=== PATIENT | female | born 1985 | race American Indian/Alaskan Native ===

== ENCOUNTER 2016-12-14 05:41 | Inpatient (IN) | payer MEDICAID ==
[2016-12-14] MEDS ORDERED: LACTATED RINGERS 1,000 ML ONE ×2 (06:07→06:51)
[2016-12-14] MEDS ORDERED: LACTATED RINGERS 1,000 ML IV ONE (06:56)
[2016-12-14] MEDS ORDERED: PHENERGAN PO PRN (06:58)
[2016-12-14] MEDS ORDERED: PHENERGAN PR PRN (06:58)
[2016-12-14] MEDS ORDERED: TORADOL IV PRN (06:58)
[2016-12-14] MEDS ORDERED: ZOFRAN IV PRN (06:58)
[2016-12-14] MEDS ORDERED: NARCAN 0.4 MG/1 ML IV PRN ×2 (06:58→09:30)
--- NOTE | 2016-12-14 06:58 | Anesthesia Consultation ---
Anesthesia Consult and Med Hx Date of service: 12/14/16 - Airway Anesthetic Teeth Evaluation: Good (some missing teeth) ROM Head & Neck: Adequate Mental/Hyoid Distance: Adequate Mallampati Class: Class II Intubation Access Assessment: Probably Good - Pre-Operative Health Status ASA Pre-Surgery Classification: ASA2 Proposed Anesthetic Plan: Spinal - Pulmonary Hx Asthma: No COPD: No Hx Pneumonia: No - Cardiovascular System Hx Hypertension: No - Central Nervous System Hx Seizures: No Hx Psychiatric Problems: No - Endocrine Hx Renal Disease: No Hx End Stage Renal Disease: No Hx Hypothyroidism: No Hx Hyperthyroidism: No - Hematic Hx Anemia: No Hx Sickle Cell Disease: No - Other Systems Hx Alcohol Use: No - Additional Comments Anesthesia Medical History Comments: h/o c-sections x 3
--- NOTE | 2016-12-14 06:58 | Anesthesia Day of Surgery ---
Anesthesia Day of Surgery - Day of Surgery Patient Examined: Yes Patient H&P Reviewed: Yes Patient is NPO: Yes
[2016-12-14] MEDS ORDERED: SODIUM CHLORIDE FLUSH SYRINGE 10 ML IV NR (07:00)
[2016-12-14] MEDS ORDERED: fentaNYL-BUPIV 2 MCG/ML-0.125% 200 MCG/100 ML BAG EPIDURAL SCH (07:00)
[2016-12-14 07:07] LABS: Hematocrit 25.9 % (30.3-42.9); Mean Corpuscular HGB Conc 31 % (30-34); Mean Corpuscular Hemoglobin 20 pg (28-32); Mean Corpuscular Volume 66 fl (79-97); Platelet Count 300 K/mm3 (140-440); Red Blood Count 3.92 M/mm3 (3.65-5.03); Red Cell Distribution Width 19.3 % (13.2-15.2); White Blood Count 6.4 K/mm3 (4.5-11.0)
--- NOTE | 2016-12-14 07:10 | History and Physical Report ---
History of Present Illness Date of examination: 12/14/16 Date of admission: 12/14/16 05:41 Chief complaint: 4th repeat LTCS History of present illness: 31-year-old 003 at 39+ weeks presents for a fourth repeat , she is a [facility] [place] patient. course has been unremarkable per patient. Past History Past Medical History: no pertinent history Past Surgical History: no surgical history PROVIDER RELATIONS COORDINATOR History: denies: chlamydia, gonorrhea, hepatitis B, hepatitis C, herpes, HIV , syphilis, trichomonas Social history: single, full code. denies: smoking, alcohol abuse, prescription drug abuse, IV drug use - Obstetrical History Expected Date of Delivery: 12/19/16 Actual Gestation: 39 Week(s) 2 Day(s) : 4 Para: 3 Medications and Allergies Allergies Allergy/AdvReac Type Severity Reaction Status Date / Time No Known Allergies Allergy Unverified 12/14/16 06:38 Active Meds: Active Medications Lactated Ringer's (Lactated Ringers) 1,000 mls @ 999 mls/hr IV BOLUS ONE Stop: 12/14/16 07:56 Fentanyl/Bupivacaine/Sodium Chlor (Fentanyl-Bupiv 2 Mcg/Ml-0.125%) 200 mcg in 100 mls @ 8 mls/hr EPIDURAL TITR SHANTA PRN Reason: Protocol Ketorolac Tromethamine (Toradol) 30 mg IV Q6H PRN PRN Reason: Pain, Moderate (4-6) Stop: 12/19/16 06:57 Naloxone HCl (Narcan 0.4 Mg/1 Ml) 0.2 mg IV Q2MIN PRN PRN Reason: Res Rate </= 8 or 02 SAT < 92% Stop: 12/16/16 06:59 Ondansetron HCl (Zofran) 4 mg IV Q8H PRN PRN Reason: Nausea And Vomiting Promethazine HCl (Phenergan) 25 mg PO Q6H PRN PRN Reason: Nausea And Vomiting Promethazine HCl (Phenergan) 25 mg NM Q6H PRN PRN Reason: Nausea And Vomiting Sodium Chloride (Sodium Chloride Flush Syringe 10 Ml) 10 ml IV PRN NR Stop: 12/15/16 06:59 Review of Systems Constitutional: no fever, no chills Cardiovascular: no chest pain, no orthopnea, no palpitations, no syncope, no lightheadedness, no shortness of breath, no dyspnea on exertion, no high blood pressure Respiratory: no cough, no shortness of breath, no dyspnea on exertion Gastrointestinal: no abdominal pain, no nausea, no vomiting Genitourinary: no vaginal bleeding, no vaginal discharge, no leakage of fluid - Vital Signs Vital signs: Vital Signs Pulse Pulse Ox 104 H 97 12/14/16 06:39 12/14/16 06:39 Temp Pulse Resp BP Pulse Ox 98.3 F 100 H 18 114/76 99 12/14/16 06:40 12/14/16 07:03 12/14/16 06:40 12/14/16 06:41 12/14/16 07:03 - Physical Exam Cardiovascular: Regular rate, Normal S1, Normal S2 Lungs: Positive: Clear to auscultation, Normal air movement Abdomen: Positive: normal appearance, soft. Negative: distention, tenderness, guarding, rigidity Uterus: Positive: enlarged (EFW ~ 3600) Adnexa: both: normal Extremities: Positive: normal - Obstetrical FHR: category 1 Results Result Diagrams: 12/14/16 06:00 Abnormal lab results 12/14/16 Range/Units 06:00 Hgb 8.0 L (10.1-14.3) gm/dl Hct 25.9 L (30.3-42.9) % MCV 66 L (79-97) fl MCH 20 L (28-32) pg RDW 19.3 H (13.2-15.2) % All other labs normal. Assessment and Plan A: 31-year-old 003 at 39+2 weeks presents for fourth repeat -Cat 1 tracing P: -Patient is aware of increased risk with repeat surgeries -She declined tubal ligation in the office -She has been consented, will proceed to the OR once available - Patient Problems (1) 39 weeks gestation of Current Visit: Yes Status: Acute (2) History of 3 sections Current Visit: Yes Status: Acute
[2016-12-14] MEDS ORDERED: MORPHINE ONE (07:30)
[2016-12-14] MEDS ORDERED: LACTATED RINGERS 1,000 ML IV SCH (08:00)
[2016-12-14] MEDS ORDERED: PEPCID IV NR (08:00)
[2016-12-14] MEDS ORDERED: PITOCin/NS 20 UNIT/1000ML DRIP 20 UNITS/1,000 ML BAG IV SCH ×2 (08:00→09:30)
[2016-12-14] MEDS ORDERED: BICITRA PO NR (08:00)
[2016-12-14] MEDS ORDERED: ANCEF/STERILE WATER 2 GM/20 ML 2 GM/20 ML SYRINGE IV NR (08:00)
[2016-12-14] MEDS ORDERED: XYLOCAINE MPF 2% ONE ×2 (08:17→08:18)
[2016-12-14] MEDS ORDERED: NACL 0.9% 1000 ML 1,000 ML ONE (08:21)
[2016-12-14] MEDS ORDERED: WATER FOR IRRIG STERILE IR ONE (08:23)
[2016-12-14] MEDS ORDERED: NACL 0.9% IR ONE (08:23)
[2016-12-14] MEDS ORDERED: ZOFRAN ONE (08:24)
[2016-12-14] MEDS ORDERED: REGLAN IV NR (08:30)
[2016-12-14] MEDS ORDERED: EMLA TP PRN (08:30)
[2016-12-14] MEDS ORDERED: NEO SYNEPHRINE/NS Syringe(OR USE) IV ONE (08:30)
[2016-12-14] MEDS ORDERED: NACL 0.9% 500 ML 500 ML IV NR (08:30)
--- NOTE | 2016-12-14 08:56 | Operative Report ---
Operative Report Operative Report: DATE: 12/14/2016 PREOPERATIVE DIAGNOSIS: 31-year-old 003 at 39+2 weeks, 3 prior C-sections , Anemia with Hgb of 8 POSTOP DIAGNOSIS: As above NAME OF PROCEDURE: 4th Repeat low transverse section Adhesiolysis SURGEON: ANNA ANDUJAR MD SENIOR MANUFACTURING TEST ENGINEER: [] ANESTHESIA: Combined spinal epidural EBL: 700 mL PATHOLOGY SPECIMEN: None URINE OUTPUT: 30 mL She was transfused with 1 unit packed red blood cells prior to procedure FINDINGS: Female infant in cephalic presentation, time of was 0 8:11 AM, infant weight was 6 lbs. 15 oz. or 3157 g, Apgars 9 and 9, mild adhesions, normal uterus tubes and ovaries bilaterally DESCRIPTION OF PROCEDURE: She was taken to the operating room where she was prepped and draped in a sterile fashion, she was placed in the dorsal supine position. Pfannenstiel incision was performed through her prior incisional scar which was carried through to underlying rectus fascia which was on the midline. The fascial incision was extended laterally with use of Carrizales scissors , the anterior leaf was then grasped with Kochers forceps elevated dissected sharply and bluntly off the underlying rectus in a similar fashion inferior leaf was grasped elevated dissected sharply and bluntly off the underlying rectus. The rectus was in the midline, good visualization of bladder was noted. A bladder blade was placed in the patient's pelvic cavity; bladder flap could not be created. A hysterotomy incision was then performed in the lower segment with clear amniotic fluid noted, hysterotomy incision was extended laterally with the use of fingers manually. Infant in cephalic presentation was delivered in the usual manner; cord was clamped and cut infant was handed over to waiting nursery staff. The placenta was then delivered manually intact, the uterus was exteriorized cleared of all clots and debris. Hysterotomy incision was then closed in a running locked fashion with 0 Vicryl on a CTX; using the same suture was imbricate the initial layer. Interrupted [id number] stitches were used to obtain hemostasis. Uterus was then returned to the patient's pelvic cavity; peritoneal edges were grasped with hemostats and Tiffanie's elevated copiously irrigation was used to clear the gutters of all clots and debris. Tercel hemostatic agent was then applied to the hysterotomy incision as a means to prevent future bleeding, Interceed was then applied into the pelvic cavity as a means to prevent future adhesions. The peritoneal layer was then closed in a running fashion with 3-0 Vicryl and the rectus was reapproximated with a single xjcqfa-no-hveiq stitch. The fascia was closed in a running fashion with 0 Vicryl and tied in the opposite side. The subcutaneous layer was irrigated and then reapproximated with interrupted [id number]-ht-[id number] stitches. The skin was closed in a subcuticular manner with 4- 0 Vicryl. She tolerated the procedure well lap and instrument counts were correct 2 she did receive 2 g of Ancef prior to incision she is transferred to PACU in stable condition thank you.
[2016-12-14] MEDS ORDERED: SODIUM CHLORIDE FLUSH SYRINGE 10 ML IV PRN (09:00)
[2016-12-14] MEDS ORDERED: MOTRIN PO PRN (09:30)
[2016-12-14] MEDS ORDERED: TUCKS PAD TP PRN (09:30)
[2016-12-14] MEDS ORDERED: LANSINOH TP PRN (09:30)
[2016-12-14] MEDS: DILAUDID IV PRN ×2 (09:33→09:46)
--- NOTE | 2016-12-14 09:45 | Post Anesthesia Evaluation ---
- Post Anesthesia Evaluation Patient Participated: Yes Airway Patent: Yes Stable Respiratory Function: Yes Nausea/Vomiting: No Temp > 96.8F: Yes Pain Manageable: Yes Adequeate Hydration: Yes Anesthesia Complications: No
[2016-12-14] MEDS ORDERED: ANUCORT-HC PR PRN (10:00)
[2016-12-14] MEDS ORDERED: BENADRYL IV ONE (13:53)
[2016-12-14] MEDS: D5LR 1,000 ML IV SCH ×2 (14:29→21:24)
[2016-12-14 22:01] LABS: Hematocrit 24.4 % (30.3-42.9); Hemoglobin 7.5 gm/dl (10.1-14.3)
[2016-12-15] MEDS: BENADRYL PO PRN ×2 (02:00→22:21)
[2016-12-15] MEDS: PERCOCET 5/325 PO PRN ×3 (07:09→22:21)
--- NOTE | 2016-12-15 08:14 | Progress Note ---
Assessment and Plan POD # 1 s/p 4th repeat LTCS -Doing well P: -Continue routine postop care -Anticipate discharge in 24-48 hours - Patient Problems (1) Status post repeat low transverse section Current Visit: Yes Status: Acute (2) 39 weeks gestation of Current Visit: Yes Status: Acute (3) History of 3 sections Current Visit: Yes Status: Acute (4) Anemia Current Visit: Yes Status: Acute Qualifiers: Anemia type: A Iron deficiency anemia type: I Vitamin B12 deficiency anemia type: V Folate deficiency anemia type: F Bone marrow failure anemia type: B Hemolytic anemia type: H Other causes of anemia: acute posthemorrhagic Chronic kidney disease stage: C Qualified Code(s): D62 - Acute posthemorrhagic anemia Subjective - Subjective Date of service: 12/15/16 Principal diagnosis: POD # 1 s/p 4th repeat LTCS Interval history: Patient seen and examined, stable doing well. Fever or chills, no shortness of breath or chest pain, ambulating without difficulty and the bowel bladder function. Hgb low this morning however patient asymptomatic Patient reports: appetite normal, voiding normally, pain well controlled, ambulating normally, no dizzy ambulation, no nauseated : doing well Objective - Vital Signs Latest vital signs: Vital Signs Temp Pulse Pulse Pulse Resp BP BP 12/15/16 04:40 99.2 F 100 H 18 99/62 12/15/16 01:05 97.8 F 85 18 108/68 12/14/16 20:10 98.9 F 95 H 18 103/66 12/14/16 16:15 98.5 F 86 20 102/72 12/14/16 12:09 98.4 F 64 16 106/62 12/14/16 10:00 97.9 F 91 H 20 118/79 12/14/16 09:46 16 12/14/16 09:45 88 14 112/81 12/14/16 09:33 18 12/14/16 09:30 94 H 17 103/71 12/14/16 09:25 91 H 13 103/71 12/14/16 09:20 97 H 13 111/76 12/14/16 09:15 93 H 17 107/72 12/14/16 09:10 104 H 11 L 105/74 12/14/16 09:05 97 H 15 98/64 12/14/16 09:00 96/60 12/14/16 08:59 12/14/16 08:30 106 H 104/64 Pulse Ox 12/15/16 04:40 12/15/16 01:05 12/14/16 20:10 12/14/16 16:15 12/14/16 12:09 12/14/16 10:00 12/14/16 09:46 12/14/16 09:45 100 12/14/16 09:33 12/14/16 09:30 100 12/14/16 09:25 100 12/14/16 09:20 100 12/14/16 09:15 100 12/14/16 09:10 12/14/16 09:05 12/14/16 09:00 100 12/14/16 08:59 100 12/14/16 08:30 Intake and Output 12/14/16 12/15/16 12/15/16 22:59 06:59 14:59 Intake Total 1610 240 Output Total 1400 300 Balance 210 -60 Intake: IV 1250 D5lr 1,000 ml @ 125 mls/ 1250 hr IV DIRECT SHANTA Rx#: [id number] Oral 120 Intake, Free Water 240 240 Output: Urine 1400 300 Indwelling Catheter 1400 Void 300 Other: Total, Intake Amount 120 Total, Output Amount 800 300 - Exam Abdomen: Present: normal appearance, soft. Absent: distention, tenderness, guarding, rigidity Uterus: Present: fundal height below umbilicus. Absent: tenderness Extremities: Present: normal Incision: Present: dressed - Labs Labs: Abnormal lab results 12/14/16 12/14/16 Range/Units 06:00 20:52 Hgb 7.5 L (10.1-14.3) gm/dl Hct 24.4 L (30.3-42.9) % Crossmatch See Detail
--- NOTE | 2016-12-15 09:55 | Progress Note ---
Subjective Date of service: 12/15/16 Principal diagnosis: POD # 1 s/p 4th repeat LTCS Interval history: 1st POD after Patient is in the bed, comfortable. Pain is well controlled with pain meds. Ambulated well, no residual neurological deficit. Pruritus is much better this morning. No anesthesia complications Objective - Constitutional Vitals: Vital Signs - 12hr 12/15/16 12/15/16 12/15/16 01:05 04:40 08:29 Temperature 97.8 F 99.2 F 98.5 F Pulse Rate [ 85 100 H 97 H Left Radial] Respiratory 18 18 20 Rate Blood Pressure 108/68 99/62 109/72 [Left Arm] - Labs CBC & Chem 7: 12/14/16 20:52 Labs: Abnormal lab results 12/14/16 12/14/16 Range/Units 06:00 20:52 Hgb 7.5 L (10.1-14.3) gm/dl Hct 24.4 L (30.3-42.9) % Crossmatch See Detail
[2016-12-15] MEDS: FEOSOL PO SCH (10:13)
[2016-12-15] MEDS: PRENATAL VITAMIN PO SCH (10:14)
[2016-12-15] MEDS: SENOKOT PO PRN (22:27)
[2016-12-15] MEDS: MYLICON PO PRN (22:27)
[2016-12-16] MEDS: PERCOCET 5/325 PO PRN ×3 (05:45→21:46)
[2016-12-16] MEDS: MYLICON PO PRN (05:50)
[2016-12-16] MEDS ORDERED: BOOSTRIX IM ONE (06:00)
--- NOTE | 2016-12-16 08:15 | Progress Note ---
Assessment and Plan POD # 2 s/p 4th repeat LTCS -Doing well P: -Continue routine postop care -Anticipate discharge in ~ 24 hours - Patient Problems (1) Status post repeat low transverse section Current Visit: Yes Status: Acute (2) 39 weeks gestation of Current Visit: Yes Status: Acute (3) History of 3 sections Current Visit: Yes Status: Acute (4) Anemia Current Visit: Yes Status: Acute Qualifiers: Anemia type: A Iron deficiency anemia type: I Vitamin B12 deficiency anemia type: V Folate deficiency anemia type: F Bone marrow failure anemia type: B Hemolytic anemia type: H Other causes of anemia: acute posthemorrhagic Chronic kidney disease stage: C Qualified Code(s): D62 - Acute posthemorrhagic anemia Subjective - Subjective Date of service: 12/16/16 Principal diagnosis: POD # 2 s/p 4th repeat LTCS Interval history: Patient seen and examined, stable doing well. No fever or chills, no shortness of breath or chest pain, ambulating without difficulty and has adequate bowel bladder function. Patient reports: appetite normal, voiding normally, pain well controlled, flatus , ambulating normally, no dizzy ambulation, no nauseated : doing well Objective - Vital Signs Latest vital signs: Vital Signs Temp Pulse Resp BP 12/16/16 00:07 98.6 F 88 20 106/72 12/15/16 16:06 98.4 F 103 H 20 117/79 12/15/16 08:29 98.5 F 97 H 20 109/72 Intake and Output 12/15/16 12/16/16 12/16/16 22:59 06:59 14:59 Intake Total 360 360 Balance 360 360 Intake: Oral 120 Intake, Free Water 360 240 Other: Total, Intake Amount 120 Voiding Method Toilet # Voids Void 2 1 - Exam Abdomen: Present: normal appearance, soft, normal bowel sounds. Absent: distention, tenderness, guarding Uterus: Present: fundal height below umbilicus. Absent: tenderness Extremities: Present: normal Incision: Present: dry, intact - Labs Labs: Abnormal lab results 12/14/16 Range/Units 06:00 Crossmatch See Detail
--- NOTE | 2016-12-16 08:19 | Discharge Summary ---
Providers - Providers Date of Admission: 12/14/16 05:41 Date of discharge: 12/17/16 Attending physician: ADRIAN GARCIA Primary care physician: ADRIAN GARCIA Hospitalization Reason for admission: section (3 prior C-sections), IUP at term Delivery: Procedure: repeat low transverse (4th repeat LTCS) Incision: dry, intact Other procedures: none complications: none, transfusion (1 unit PRBC) Discharge diagnosis: IUP at term delivered, other (fourth repeat , Anemia) baby: female Hospital course: Patient was admitted to the floor in stable condition. Her postoperative course was unremarkable. Her hemoglobin did drop from ~ 8 to 7.5 but she was status post 1 unit packed red blood cells Intra-Op. She was asymptomatic Condition at discharge: Good Disposition: DC- TO HOME OR SELFCARE - Discharge Diagnoses (1) Status post repeat low transverse section Status: Acute (2) 39 weeks gestation of Status: Acute (3) History of 3 sections Status: Acute (4) Anemia Status: Acute Qualifiers: Anemia type: A Iron deficiency anemia type: I Vitamin B12 deficiency anemia type: V Folate deficiency anemia type: F Bone marrow failure anemia type: B Hemolytic anemia type: H Other causes of anemia: acute posthemorrhagic Chronic kidney disease stage: C Qualified Code(s): D62 - Acute posthemorrhagic anemia Plan - Discharge Medications Prescriptions: Ibuprofen [Motrin 600 MG tab] 600 mg PO Q8H PRN #30 tablet PRN Reason: Pain Multivitamin with Iron [Multivitamins with Iron] 1 each PO DAILY #30 tablet oxyCODONE /ACETAMINOPHEN [Percocet 5/325] 1 tab PO Q6HR PRN #30 tablet PRN Reason: Pain - Provider Discharge Summary Activity: no sex for 6 weeks, no heavy lifting 4 weeks, no strenuous exercise Diet: routine Additional instructions: [] Smoking cessation referral if applicable(refer to patient education folder for contact #) [] Refer to [facility] Booklet Call your doctor immediately for: * Fever > 100.5 * Heavy vaginal bleeding ( >1 pad per hour) * Severe persistent headache * Shortness of breath * Reddened, hot, painful area to leg or breast * Drainage or odor from incision. * Keep incision clean and dry at all times and follow doctor's instructions regarding bathing/showering - Follow up plan Follow up: ADRIAN GARCIA MD [Primary Care Provider] - 7 Days
[2016-12-16] MEDS: FEOSOL PO SCH ×2 (10:30→11:07)
[2016-12-16] MEDS: PRENATAL VITAMIN PO SCH ×2 (10:30→11:08)
[2016-12-16] MEDS: SENOKOT PO PRN (21:46)
[2016-12-17 08:42] VITALS: BP 106/78
[2016-12-17] MEDS: PERCOCET 5/325 PO PRN (09:43)
[2016-12-17] MEDS: FEOSOL PO SCH (09:44)
[2016-12-17] MEDS: PRENATAL VITAMIN PO SCH (09:44)
== END 2016-12-17 13:40 | disposition home or self-care (01) | DRG 765 ==
LOC: APU 05:41 → OB 10:27
PROVIDERS: ADMIT Obstetrics & Gynecology; ATTEND Obstetrics & Gynecology
PROC: 10D00Z1 Extraction of Products of Conception, Low, Open Approach (ICD-10-PCS; principal; 2016-12-14)
PROC: 30233N1 Transfusion of Nonautologous Red Blood Cells into Peripheral Vein, Percutaneous Approach (ICD-10-PCS; 2016-12-14)
DX: O34.211 Maternal care for low transverse scar from previous cesarean delivery (principal); D62 Acute posthemorrhagic anemia; O99.02 Anemia complicating childbirth; Z3A.39 39 weeks gestation of pregnancy; Z37.0 Single live birth
CPT/HCPCS: 36415; 85014; 85018; 85027; 86850; 86900; 86901; 86920; 90471; 90715; 99211; A6250; C9250; G0463; J1170; J1200; J1885; J2270; J2370; J2405; J2590; J2765; J7030; J7120; J7121; P9016